=== PATIENT | female | born 2000 | race Two or more races ===

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

== ENCOUNTER 2022-06-26 11:47 | Emergency (ER) | payer OTHER ==
[~2022-06-26] VITALS: Ht 165.1 cm; Wt 99.8 kg
[~2022-06-26 11:47] MED LIST changes: +BIRTH CONTROL; +Ondansetron Odt8 MG MM
[2022-06-26 16:33] LABS: Source, Urine Clean Catch
[2022-06-26 16:39] LABS: Appearance, Urine Clear (Clear); Bilirubin, Urine Neg (Neg); Blood, Urine 2+ (Neg); Color, Urine Yellow (P-Yellow); Glucose Qualitative, Urine Neg (Neg); Ketones, Urine Neg (Neg); Leukocyte Esterase, Urine 1+ (Neg); Nitrite, Urine Neg (Neg); Protein, Urine Neg (Neg); Urobilinogen, Urine NORM (Normal)
[2022-06-26 16:45] LABS: Bacteria Few /hpf; Squamous Epithelial Cells Rare /hpf (Few)
[2022-06-26] MEDS ORDERED: DOXY100 PO (17:39)
[2022-06-26] MEDS ORDERED: AFTERA1.5 M1 PO (17:39)
[2022-06-26] MEDS ORDERED: METR500 PO (17:39)
== END 2022-06-26 17:49 | disposition home or self-care (01) ==
LOC: ER 11:47
PROVIDERS: Student in an Organized Health Care Education/Training Program
DX: T74.21XA Adult sexual abuse, confirmed, initial encounter (principal); F17.290 Nicotine dependence, other tobacco product, uncomplicated
CPT/HCPCS: 81001; 81025; 87086; 96372; A9270; J0696

== ENCOUNTER → 2023-02-16 | Outpatient (CLI) | payer OTHER ==
[~2023-02-16] MED LIST changes: +AFTERA1.5 M1 PO; +DOXY100 PO; +METR500 PO
[2023-02-16 17:31] LABS: CHOL/HDL RATIO 4.1; Cholesterol 161 mg/dL (50-200); Ferritin, Serum 102 ng/mL (8-252); HDL Cholesterol 39 mg/dL (>39); Iron Serum 80 ug/dL (50-170); LDL/HDL RATIO 2.4; Low Density Lipoprotein Chol 95 mg/dL (0-110); Percent Saturation 25.1 % (15.0-50.0); Total Iron Binding Capacity 319 ug/dL (250-450); Triglycerides 135 mg/dL (30-140); Very Low Density Lipoprot Chol 27 mg/dL (6-28)
== END | disposition home or self-care (01) ==
LOC: LAB SHORT 12:02 → LAB 12:02
PROVIDERS: Family Medicine
DX: Z13.220 Encounter for screening for lipoid disorders (principal); R53.81 Other malaise
CPT/HCPCS: 80061; 82728; 83540; 83550; 84443

== ENCOUNTER → 2025-01-10 | Outpatient (CLI) | payer OTHER ==
[2025-01-10 16:39] LABS: Source, Urine Clean Catch
[2025-01-10 16:53] LABS: Appearance, Urine Hazy (Clear); Color, Urine Yellow (P-Yellow); Specific Gravity, Urine 1.015 (1.003-1.022)
[2025-01-10 16:54] LABS: Bacteria Few /hpf; Bilirubin, Urine Neg (Neg); Blood, Urine 1+ (Neg); Glucose Qualitative, Urine Neg (Normal); Ketones, Urine Neg (Neg); Leukocyte Esterase, Urine 2+ (Neg); Nitrite, Urine Neg (Neg); Protein, Urine Neg (Neg); Red Blood Cells, Urine 0-2 /hpf (0-2); Squamous Epithelial Cells Many /hpf (Few); Urobilinogen, Urine NORM (Normal); pH, Urine 6.5 (5.0-8.0)
== END ==
LOC: LAB 16:34 → LAB SHORT 16:34
PROVIDERS: Nurse Practitioner Obstetrics & Gynecology
DX: Z51.81 Encounter for therapeutic drug level monitoring (principal); Z79.899 Other long term (current) drug therapy
CPT/HCPCS: 81001

== ENCOUNTER 2025-06-19 08:35 | Inpatient (IN) | payer OTHER ==
[~2025-06-19] VITALS: Ht 167.6 cm; Wt 113.4 kg
[~2025-06-19 08:35] MED LIST changes: +DESVENLAFAXINE100 M3 PO; +LURASIDONE HCL60 MG PO; +PROP10 PO; +[UNRECOGNIZED DRUG - CODE] PO
[2025-06-19 10:57] VITALS: BP 135/89
[2025-06-19] MEDS ORDERED: LORazepam 2 MG/ML 1ML Injection IM PRN (11:00)
[2025-06-19] MEDS ORDERED: Ondansetron 4 MG SoluTab MM PRN (11:05)
[2025-06-19] MEDS ORDERED: Polyethylene Glycol 3350 17 gm PO PRN (11:05)
[2025-06-19] MEDS ORDERED: Aluminum Hydroxide 320MG/5ML 473 ML PO PRN (11:10)
[2025-06-19] MEDS ORDERED: Haloperidol Lactate Inj. 5 MG/ML Injection IM PRN (11:10)
[2025-06-19] MEDS ORDERED: FLU VACC TS2025-26(6MOS UP)/PF 45 MCG/0.5 ML SYRINGE IM SCH (11:10)
[2025-06-19] MEDS ORDERED: DiphenhydrAMINE HCl 50 MG/ML 1ML Vial IM PRN (11:10)
[2025-06-19 11:21] VITALS: BP 135/89
--- NOTE | 2025-06-19 16:57 | NUR ---
SHIFT SUMMARY NO ACUTE EVENTS SINCE ADMIT. PT DENIES SI, HI, AVTH AT THIS TIME. DENIED ANY TRIGGERING EVENTS, BUT STATED SHE FELT OVERWHELMED. STATES HER FAMILY IS NOT IN HER LIFE ANYMORE. STATED HER PLAN WAS TO USE A KNIFE D/T BOYFRIEND HIDING/LOCKING GUNS AWAY, BUT STATED IF SHE "REALLY" WANTED TO SHE COULD GAIN ACCESS TO THEM. PT IS GOAL ORIENTED AND WANTS TO TAKE CLASSES TO TAKE THE NEXT LEVEL OF MEDICAL ASSISTANCE. STATES SHE HAS DEALT W/ CHRONIC SUICIDAL IDEATION T/O HER LIFE AND HAS HAD 2 PREVIOUS ATTEMPTS W/ ONE BEING ABORTED BY HERSELF AND THE OTHER INTERRUPTED BY HER MOTHER. PT ALSO ENDORSES A LONG HISTORY OF ALCOHOL USE STARTING AT AGE 13 WHEN SHE FIRST DRANK AND ALSO SMOKING CIGARETTES AT AN EARLY AGE (SEE ASSESS SUBSTANCE ABUSE).
--- NOTE | 2025-06-19 17:42 | NUR ---
AT APPROX 1600. THIS RN GREETED PATIENT IN ANDERSON AND ASKED HOW SHE IS DOING. PT BECAME TEARFUL AND RELAYED THAT SHE WAS FEELING SCARED AND ANXIOUS. SPENT TIME REASSURING PT OF SAFETY AND STAFF ROLES. OFFERED PT A VISTRIL AND USE OF THE SENSORY ROOM. SHE ACCEPTED. MASS SCORE WAS 5. SHE WAS IN SENSORY ROOM AND ABLE TO MAKE A PHONE CALL. PT REPORTED GOOD RESULTS AND APPEARED CALM WHEN THIS RN CHECKED 30 MIN LATER
[2025-06-19 19:45] VITALS: BP 126/85
[2025-06-19] MEDS ORDERED: LURASIDONE (LATUDA) 60 MG TABLET PO SCH (21:00)
--- NOTE | 2025-06-20 04:41 | NUR ---
SHIFT SUMMARY PATIENT IS ALERT AND ORIENTED TIMES FOUR. SHE WAS UP PARTICIPATING IN THE MILIEU AND TALKING TO STAFF BEFORE SNACK TIME, AND IN THE DAY ROOM WATCHING A MOVIE WITH STAFF UNTIL LIGHTS OUT. dURING ASSESSMENT, SHE DENIED SI,HI AND AVTH (ALTHOUGH SI DOES COME AND GO FOR HER SHE SAID) bOYFRIEND ID SUPPOSED TO BRING IN RX OF LATUDA FROM [facility] TODAY. WILL CONTINUE CLOSE MONITORING EVERY 15 MINUTES FOR SAFETY AND COMFORT.
[2025-06-20 08:29] LABS: CHOL/HDL RATIO 5.1; Cholesterol 192 mg/dL (50-200); HDL Cholesterol 38 mg/dL (>39); LDL/HDL RATIO 3.4; Low Density Lipoprotein Chol 129 mg/dL (0-110); Triglycerides 126 mg/dL (30-140); Very Low Density Lipoprot Chol 25 mg/dL (6-28)
[2025-06-20 08:39] VITALS: BP 114/78
[2025-06-20] MEDS ORDERED: Multivitamins 1 Tab PO SCH (09:00)
--- NOTE | 2025-06-20 09:56 | NUR ---
PCP OFFICE TRACEY CALLED TO VERIFY THAT THIS PATIENT IS HERE. PATIENT SEES CEM BILL. PHONE NUMBER [phone]
--- NOTE | 2025-06-20 17:00 | NUR ---
SHIFT SUMMARY NO ACUTE EVENTS TODAY. PT DENIES SI, HI, AVTH. STATES SHE FEELS "CALMER" AND "EMOTIONAL STILL". HAS BEEN DRAWING/COLORING T/O DAY, ATTENDED GROUPS, ATE MEALS.
[2025-06-20 19:15] VITALS: BP 124/79
--- NOTE | 2025-06-21 04:31 | NUR ---
SHIFT SUMMARY PT SPENT TIME COLORING IN GROUP ROOM AND READING HER BOOK IN THE SENSORY ROOM. SHE IS CALM AND COOPERATIVE. SHE DENIES ANY SI, HI, THOUGHTS OF SELF HARM OR AVTH. SHE STATES SHE FEELS CALM AND HOPEFUL AND NOTES THAT THE MEDITATION GROUP TODAY WAS VERY HELPFUL. SHE HAD EVENING SNACK AND WAS COMPLIANT WITH MEDS. SHE REQUESTED AND RECEIVED PRN TRAZODONE TO ASSIST WITH SLEEPING. SHE HAS REMAINED IN BED THROUGHOUT THE NIGHT. Q15 MINUTE CHECKS TO CONTINUE PER PT SAFETY.
[2025-06-21 08:43] VITALS: BP 133/82
--- NOTE | 2025-06-21 09:30 | NUR ---
SHIFT ASSESSMENT: PT ALERT, ORIENTED AND COOPERATIVE WITH CARE. SHE IS APPEARS TO BE WELL GROOMED AND HAS APPROPRIATE EYE CONTACT. HER AFFECT IS EUTHYMIC AND SHE REPORTS HER MOOD "I'M FEELING GOOD, BETTER THAN I WAS WHEN I CAME IN". SHE HAS BEEN UP FOR BREAKFAST AND ENGAGED WITH THIS RN DURING CONVERSATION. STATES THAT SHE SLEPT WELL LAST NIGHT. SHE DENIES SI, HI AND AVH. PT CURRENTLY SITTING IN THE SENSORY ROOM READING A BOOK. COMPLIANT WITH MEDICATIONS. Q 15 MIN CHECKS FOR SAFETY.
--- NOTE | 2025-06-21 18:00 | NUR ---
SHIFT SUMMARY: PT ALERT, ORIENTED AND COOPERATIVE WITH CARE. SHE DENIES SI, HI AND AVH. ATTENDED MEALS AND GROUPS. SHE WAS PRESENT ON THE UNIT AND ACTIVE IN THE MILIEU. SHE SPENT TIME RESTING IN HER ROOM AND IN THE DAY ROOM WATCHING TV. SHE HAD A VISIT WITH HER S/O THAT APPEARED TO GO WELL. NO ACUTE CHANGES SINCE SHIFT ASSESSMENT. SAFETY MONITORING Q 15 MIN PER UNIT PROTOCOL.
[2025-06-21 19:32] VITALS: BP 118/83
--- NOTE | 2025-06-22 09:22 | NUR ---
SHIFT ASSESSMENT: PT IS ALERT, ORIENTED AND COOPERATIVE WITH CARE. SHE IS FAIRLY WELL GROOMED AND HAS APPROPRIATE EYE CONTACT. SHE DENIES SI AND HI BUT REPORTS 9/10 ANXIETY. SHE STATES THAT SHE IS HEARING A VOICE THAT IS "TELLIG ME TO KILL MYSELF" PT APPEARS ANXIOUS, SPEAKING FASTER THAN NORMAL AND HAS INCREASED RATE OF BREATHING. PT SAT IN THE CHAIR BY THE NURSES STATION, ENCOURAGED HER TO USE RELAXATION BREATHING AND SHE WAS ABLE TO CALM. PT WAS MEDICATED WITH PRN ZYPREXA PER EMAR FOR MASS SCORE 7. SHE ATTENDED BREAKFAST BUT PER TASHI Scott PATIENT DID NOT EAT THIS MORNING. PT RETURNED TO HER ROOM AND IS RESTING IN BED AT THIS TIME. Q 15 MIN CHECKS FOR SAFETY PER UNIT PROTOCOL.
--- NOTE | 2025-06-22 10:01 | NUR ---
SHIFT ASSESSMENT: PT ALERT, ORIENTED AND COOPERATIVE WITH CARE. SHE DENIES SI,HI AND AVH. SHE APPEARS WELL GROOMED AND HAS APPROPRIATE EYE CONTACT. STATES THAT SHE IS "DOING GREAT TODAY" WHEN ASKED ABOUT HER MOOD. SHE IS SMILING AND ENGAGED WITH THIS RN DURING CONVERSATION. SHE HAS BEEN COMPLIANT WITH MEDICATIONS AND ATTENED BREAKFAST. Q 15 MIN CHECKS FOR SAFETY PER UNIT PROTOCOL.
--- NOTE | 2025-06-22 17:14 | NUR ---
SHIFT SUMMARY: PT ALERT, ORIENTED AND COOPERATIVE THROUGHOUT SHIFT. SHE HAS BEEN PRESENT ON THE UNIT, SPENT TIME READING IN THE SENSORY ROOM, THE ANDERSON AND IN HER ROOM. NO PRNS GIVEN THIS SHIFT. SHE HAD A VISIT WITH HER S/O WHICH APPEARED TO GO WELL. NO ACUTE CHANGES FROM SHIFT ASSESSMENT. MONITORED WITH Q 15 MINUTE CHECKS FOR SAFETY PER UNIT PROTOCOL.
[2025-06-22 20:36] VITALS: BP 125/91
--- NOTE | 2025-06-23 04:16 | NUR ---
SHIFT SUMMARY PT IN SENSORY ROOM, READING A BOOK AT THE START OF SHIFT. SHE REPORTS HER MOOD "REALLY GOOD. I AM CALM AND INSPIRED TO GET MY LIFE TOGETHER." SHE DENIES ANY SI, HI, THOUGHTS OF SELF HARMING OR AVTH. SHE IS PLEASANT AND COOPERATIVE. SHE ENGAGED IN WRAP UP GROUP, HAD EVENING SNACK AND WAS COMPLIANT WITH SCHEDULED MEDS. SHE WENT TO BED SHORTLY AFTER 2100. Q15 MINUTE CHECKS TO CONTINUE PER PT SAFETY AND WELLNESS.
[2025-06-23 07:24] VITALS: BP 133/92
--- NOTE | 2025-06-23 08:18 | NUR ---
SHIFT ASSESSMENT: PT IS ALERT, ORIENTED AND COOPERATIVE WITH CARE. SITTING IN THE SENSORY ROOM READING A BOOK. SHE APPEARS WELL GROOMED AND HAS APPROPRIATE EYE CONTACT. STATES, "I'M DOING GREAT" HAS A CALM AFFECT AND IS ENGAGED WITH CONVERSATION. SHE DENIES SI, HI AND AVH. SHE IS COMPLIANT WITH AM MEDICATIONS AND REPORTS THAT SHE SLEPT WELL LAST NIGHT. WILL CONTINUE Q 15 MIN SAFETY CHECKS PER UNIT PROTOCOL.
--- NOTE | 2025-06-23 17:43 | NUR ---
SHIFT SUMMARY: PT ALERT, ORIENTNED AND COOPERATIVE WITH CARE THROUGHOUT SHIFT. SHE DENIED SI, HI AND AVH. SHE WAS PRESENT ON THE UNIT AND ACTIVE IN THE MILIEU. SHE SPENT TIME RESTING IN HER ROOM READING. SHE ALSO SPENT TIME READING IN THE SENSORY ROOM AND DAY ROOM. SHE ATTENED AM MOVEMENT GROUP AND MEALS. NO ACUTE CHANGES SINCE SHIFT ASSESSMENT. MONITORED WITH Q 15 MIN SAFETY CHECKS PER UNIT PER UNIT PROTOCOL.
--- NOTE | 2025-06-24 04:22 | NUR ---
SHIFT SUMMARY PT IS PLEASANT AND COOPERATIVE. SHE SMILES AND INTERACTS WELL WITH PEERS AND STAFF. SHE REPORTS HER MOOD "PRETTY HAPPY". SHE DENIES ANY SI, HI, THOUGHTS OF SELF HARM OR AVTH. SHE SPENT THE EVENING READING AND WATCHING TV. SHE HAD EVENING SNACK AND WAS COMPLIANT WITH SCHEDULED MEDS. SHE WENT TO BED AROUND 2145 AND HAS REMAINED THERE THROUGHOUT THE NIGHT. Q15 MINUTE CHECKS TO CONTINUE PER PT SAFETY AND WELLNESS.
[2025-06-24 08:18] LABS: Lithium 0.22 mmol/L (0.60-1.20)
[2025-06-24 09:42] VITALS: BP 132/74
--- NOTE | 2025-06-24 11:23 | NUR ---
IMPORTANT DISCHARGE INFORMATION PATIENT TO BE DISCHARGED TODAY AROUND 2:30. HER SPOUSE "TIBURCIO" WILL BE PICKING HER UP. HIS PHONE NUMBER IS . ALL PARTIES VERBALIZE AN UNDERSTANDING. FOLLOW UP WITH PCP ON 06/12/[address] HORTA AT [facility]. FOLLOW UP WITH [facility] ON 07/01/25 NITZA MONROE AT 1PM. PHARMACY: [facility] FAX [phone]
--- NOTE | 2025-06-24 14:45 | NUR ---
DISCHARGE PT A/O X4; PLEASANT AND COOPERATIVE WITH CARE. SHE DENIES SI, HI, AVTH. SHE REPORTS THAT HER MOOD IS HAPPY/CHEERFUL AND HER AFFECT IS CONGRUENT TO STATED MOOD. LITHIUM LAB DRAWN AND LITHIUM LOW. PT STATES THAT HER LITHIUM IS NORMALLY LOW AND SHE IS WORKING WITH HER PMHNP OUTPATIENT TO SWITCH TO LAMOTRIGINE AT THE END OF THIS MONTH. PT WORKS AT [employer] AND SEES A PCP AND PMHNP AT [employer]. PT'S MEDICATIONS FAXED TO [facility] PER HER REQUEST. BELONGINGS RETURNED AND HOME MEDICATION RETURNED FROM MED ROOM. DISCHARGE INSTRUCTIONS DISCUSSED WITH PATIENT AND SHE VERBALIZED UNDERSTANDING. PT LEFT THE UNIT AT 1430.
== END 2025-06-24 14:30 | disposition home or self-care (01) | DRG 885 ==
LOC: BHU 08:35
PROVIDERS: ADMIT Psychiatry & Neurology Psychiatry
DX: F33.2 Major depressive disorder, recurrent severe without psychotic features (principal); R45.851 Suicidal ideations; F43.25 Adjustment disorder with mixed disturbance of emotions and conduct; F17.290 Nicotine dependence, other tobacco product, uncomplicated; F10.10 Alcohol abuse, uncomplicated; Z91.51 Personal history of suicidal behavior; Z79.899 Other long term (current) drug therapy; Z79.1 Long term (current) use of non-steroidal anti-inflammatories (NSAID)
CPT/HCPCS: 36415; 80061; 80178; 83036; A9270